=== PATIENT | male | born 1965 | race Caucasian/White ===

== ENCOUNTER → 2018-10-30 | Outpatient (CLI) | payer OTHER | LOC: HYPER 06:36 | DX: E11.621 Type 2 diabetes mellitus with foot ulcer (principal); L97.512 Non-pressure chronic ulcer of other part of right foot with fat layer exposed; I10 Essential (primary) hypertension; N13.2 Hydronephrosis with renal and ureteral calculous obstruction; L03.115 Cellulitis of right lower limb; L03.031 Cellulitis of right toe; K21.9 Gastro-esophageal reflux disease without esophagitis; F19.10 Other psychoactive substance abuse, uncomplicated; Z79.4 Long term (current) use of insulin; Z79.01 Long term (current) use of anticoagulants; Z79.84 Long term (current) use of oral hypoglycemic drugs; Z87.891 Personal history of nicotine dependence ==

== ENCOUNTER → 2018-11-06 | Outpatient (CLI) | payer OTHER | LOC: HYPER 06:47 | DX: E11.621 Type 2 diabetes mellitus with foot ulcer (principal); L97.512 Non-pressure chronic ulcer of other part of right foot with fat layer exposed; N13.2 Hydronephrosis with renal and ureteral calculous obstruction; R60.0 Localized edema; E78.1 Pure hyperglyceridemia; I10 Essential (primary) hypertension; K21.9 Gastro-esophageal reflux disease without esophagitis; Z79.4 Long term (current) use of insulin; Z79.84 Long term (current) use of oral hypoglycemic drugs; Z87.891 Personal history of nicotine dependence ==

== ENCOUNTER → 2018-11-12 | Outpatient (CLI) | payer OTHER | LOC: HYPER 06:35 | DX: E11.621 Type 2 diabetes mellitus with foot ulcer (principal); L97.512 Non-pressure chronic ulcer of other part of right foot with fat layer exposed; E78.1 Pure hyperglyceridemia; N13.2 Hydronephrosis with renal and ureteral calculous obstruction; I10 Essential (primary) hypertension; K21.9 Gastro-esophageal reflux disease without esophagitis; R60.0 Localized edema; Z79.4 Long term (current) use of insulin; Z79.84 Long term (current) use of oral hypoglycemic drugs; Z87.891 Personal history of nicotine dependence ==

== ENCOUNTER → 2018-11-19 | Outpatient (CLI) | payer OTHER | LOC: HYPER 06:36 | DX: E11.621 Type 2 diabetes mellitus with foot ulcer (principal); L97.512 Non-pressure chronic ulcer of other part of right foot with fat layer exposed; R60.0 Localized edema; E78.1 Pure hyperglyceridemia; I10 Essential (primary) hypertension; K21.9 Gastro-esophageal reflux disease without esophagitis; N13.2 Hydronephrosis with renal and ureteral calculous obstruction; Z79.4 Long term (current) use of insulin; Z79.84 Long term (current) use of oral hypoglycemic drugs; Z87.891 Personal history of nicotine dependence ==

== ENCOUNTER → 2018-12-03 | Outpatient (CLI) | payer OTHER | LOC: HYPER 06:50 | DX: E11.621 Type 2 diabetes mellitus with foot ulcer (principal); L97.512 Non-pressure chronic ulcer of other part of right foot with fat layer exposed; L03.031 Cellulitis of right toe; N13.2 Hydronephrosis with renal and ureteral calculous obstruction; I10 Essential (primary) hypertension; E78.1 Pure hyperglyceridemia; K21.9 Gastro-esophageal reflux disease without esophagitis; R60.0 Localized edema; J18.9 Pneumonia, unspecified organism; F19.10 Other psychoactive substance abuse, uncomplicated; Z87.891 Personal history of nicotine dependence; Z79.4 Long term (current) use of insulin; Z79.84 Long term (current) use of oral hypoglycemic drugs ==

== ENCOUNTER 2018-12-18 05:35 | Day surgery (SDC) | payer OTHER ==
[~2018-12-18] VITALS: Ht 175.3 cm; Wt 86.2 kg
[~2018-12-18 05:35] MED LIST: DUREZOL5 ML OPHTHALMIC; HYDROCHLOROTHIA25 M2 PO; LIPITOR10 MG PO; LISINOPRIL40 MG PO; METFORMIN HCL1000 MG PO; NOVOLIN R100 UNIT/1 SUBQ; OFLOXACIN5 ML OPHTHALMIC
[2018-12-18 14:34] VITALS: BP 135/71
[2018-12-18] MEDS ORDERED: NORCO 5-325 TA1 EACH PO (17:02)
[2018-12-18] MEDS ORDERED: DOXYCYCLINE 10100 MG PO (17:02)
[2018-12-18 17:16] VITALS: BP 135/71
--- NOTE | 2018-12-19 09:28 | EKG ---
[address] [address] ELECTROCARDIOGRAM REPORT Name: CHAVO ROBERTSON [id number] ������������������ Admission: 12/18/18 ������������������ Attend Phys: Bj Yates DPM Discharge: 12/18/18 ������������������ Date of : 61 Report #: [id number] ����������������������������������������������������������������� [id number] THIS REPORT FOR: //name// [facility] Test Date: 2018-12-18 Test Time: 13:59:00 Pat Name: CHAVO ROBERTSON Department: Room: 150 5 Gender: M Onsite Case Manager: Kelsea GONZALEZ : 1965 Requested By: Bj Yates Order Number: [id number] MD: Pawan Pemberton Measurements Intervals Haines Rate: 85 P: 49 LA: 146 QRS: 48 QRSD: 86 T: 33 QT: 372 QTc: 443 Interpretive Statements Sinus rhythm Normal tracing No previous ECG available for comparison Electronically Signed On 12-19-2018 9:27:47 CDT by Pawan Pemberton [email or web address] ��������������������������������������������� <ELECTRONICALLY SIGNED> ���������������������������������������� By: Pawan Pemberton MD, [facility] ��������������������������������������������� 12/19/18 0927 1359 1352 Pawan Pemberton MD, FACC /EPI
--- NOTE | 2018-12-22 19:06 | PATH ---
[facility] [address] [place] [address] PATHOLOGY RPT PROCEDURE Name: CHAVO ROBERTSON Room #: DEP [facility] M.R.#: [id number] ������������������ Admission: 12/18/18 ������������������ Date of : 61 Discharge: 12/18/18 Report #: [id number] Path Case #: [id number] [facility] Accession Number: [id number] . 01 Material submitted: . toe - RIGHT 4TH TOE. Modifiers: right, fourth . 01 Clinical history: . Right fourth toe gangrene and osteomyelitis . 02 Diagnosis: Toe, right fourth toe, amputation: - Ulceration gangrenous necrosis as well as fibrinoid degeneration with marked acute inflammation extending into underlying subcutaneous tissue as well as bone. - Bone margin viable and unremarkable. (IUV:pit 12/22/2018) QTP/12/22/2018 . 02 Electronically signed: . Shaunna Juares MD, Pathologist NPI- [id number] . 01 Gross description: . The specimen is received in formalin, labeled "Chavo Robertson, right fourth toe". Received is an amputated digit measuring 6.1 x 2.4 x 1.8 cm in greatest dimensions. The bone margin is smooth and concave in appearance, consistent with disarticulation. The bone and soft tissue margins are inked black. The nail is present and is light gamboa and normal in appearance. The epidermal surface displays a poorly circumscribed cahcko-gamboa to dark brown lesion, which goes around the entire circumference of the toe, measuring 4.1 x 2.3 cm, which is 0.4 cm from the skin margin. A full-thickness longitudinal cross-section is submitted from proximal to distal aspects in cassettes A1 through A3, following decalcification. (CAA; 12/19/2018) QAC/QAC . 02 Pathologist provided ICD-10: M86.171, I96 . 02 CPT . 813532, 614148 Specimen Comment: A courtesy copy of this report has been sent to Specimen Comment: [phone], . Specimen Comment: Report sent to / DR ARIAS Performed at: [address] [place] [address] PATHOLOGY RPT PROCEDURE Name: CHAVO ROBERTSON Room #: DEP [facility]..#: [id number] ������������������ Admission: 12/18/18 ������������������ Date of : 61 Discharge: 12/18/18 Report #: [id number] Path Case #: [id number] [address] [facility], [place] [id number] MD Rolan Salter MD Phone: [phone] Performed at: [address] [id number] MD Shaunna Juares MD Phone: [phone]
== END 2018-12-18 17:45 | disposition home or self-care (01) ==
LOC: OR 05:35 → TBA 05:36 → OR 09:04
DX: M86.171 Other acute osteomyelitis, right ankle and foot (principal); I96 Gangrene, not elsewhere classified; I10 Essential (primary) hypertension; E78.5 Hyperlipidemia, unspecified; E11.9 Type 2 diabetes mellitus without complications; F17.210 Nicotine dependence, cigarettes, uncomplicated; Z79.4 Long term (current) use of insulin; Z98.890 Other specified postprocedural states; Z79.899 Other long term (current) drug therapy; Z87.442 Personal history of urinary calculi; Z88.2 Allergy status to sulfonamides
CPT/HCPCS: 50010; 50101; 50386; 50951; 56527; 57091; 57178; 62110; 62850; 70005